=== PATIENT | male | born 1950 ===

== ENCOUNTER 2021-11-21 11:07 | Emergency (ER) | payer MEDICARE ==
--- NOTE | 2021-11-21 16:45 | XRay Report ---
CHEST 2 VIEWS INDICATION / CLINICAL INFORMATION: Weakness. Recent diagnosis of Covid-11/07/2021 COMPARISON: None available. FINDINGS: SUPPORT DEVICES: None. HEART / MEDIASTINUM: No significant abnormality. LUNGS / PLEURA: There is patchy parenchymal opacity noted in the left lung base likely representing p neumonitis. No pneumothorax. ADDITIONAL FINDINGS: No significant additional findings. IMPRESSION: 1. There is some patchy airspace opacity on the left which likely represents pneumonitis. Signer Name: Shemar Kern MD Signed: 11/21/2021 4:40 PM Workstation Name: [id number]
[2021-11-21 17:03] LABS: Basophils % (Auto) 0.5 % (0.0-1.8); Eosinophils # (Auto) 0.1 K/mm3 (0.0-0.4); Eosinophils % (Auto) 0.8 % (0.0-4.3); Hematocrit 37.8 % (35.5-45.6); Hemoglobin 13.2 gm/dl (11.8-15.2); Lymphocytes % (Auto) 13.8 % (13.4-35.0); Mean Corpuscular HGB Conc 35 % (32-34); Mean Corpuscular Volume 91 fl (84-94); Monocytes # (Auto) 0.8 K/mm3 (0.0-0.8); Monocytes % (Auto) 10.2 % (0.0-7.3); Platelet Count 241 K/mm3 (140-440); Red Blood Count 4.15 M/mm3 (3.65-5.03); Red Cell Distribution Width 12.8 % (13.2-15.2)
[2021-11-21 17:42] LABS: Albumin 3.1 g/dL (3.9-5); Calcium 8.4 mg/dL (8.4-10.2)
[2021-11-21] MEDS ORDERED: SODIUM CHLORIDE 0.9% 1000 ML 1,000 ML IV ONE (19:30)
[2021-11-21] MEDS ORDERED: dexAMETHasone 4 MG/ML VIAL IV ONE (19:47)
--- NOTE | 2021-11-21 20:13 | Emergency Department Report ---
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 States that he received fluids in the hospital which significantly improved his skin condition thinks he is now getting dehydrated so presents emerged department seeking further evaluation treatment options. Reports no night sweats, hemoptysis hematemesis hematochezia no diarrhea, no constipation no abdominal pain. -: Gradual Location: chest Radiation: non-radiation Consistency: constant Improves with: none Worsens with: none Associated Symptoms: cough, malaise. denies: loss of appetite, nausea/vomiting, syncope, weakness - Related Data Home Medications Medication Instructions Recorded Confirmed Last Taken Colchicine [Colcrys] 0.6 mg PO BID 11/21/21 11/21/21 Unknown Olmesartan/Amlodipin/Hcthiazid 1 each PO 11/21/21 Unknown [Tribenzor 40-10-12.5 mg Tablet] Pantoprazole [Protonix] 40 mg PO BID 11/21/21 11/21/21 Unknown allopurinoL [Zyloprim] 100 mg PO 11/21/21 Unknown hydrALAZINE [Apresoline] 25 mg PO 11/21/21 Unknown predniSONE 10 mg PO QDAY 11/21/21 11/21/21 Unknown Previous Rx's Medication Instructions Recorded Last Taken Type Albuterol Mdi (or & Nicu Only) 2 puff IH QID PRN #1 inhalation 11/21/21 Unknown Rx [ProAir HFA Inhaler] Azithromycin [Zithromax] 500 mg PO QDAY #5 tablet 11/21/21 Unknown Rx Benzonatate [Tessalon Perles] 100 mg PO Q8HR #20 capsule 11/21/21 Unknown Rx Allergies Allergy/AdvReac Type Severity Reaction Status Date / Time aspirin AdvReac Unknown Verified 11/21/21 11:13 NSAIDS (Non-Steroidal AdvReac Unknown Verified 11/21/21 11:13 Anti-Inflamma Penicillins AdvReac Unknown Verified 11/21/21 11:13 sulfamethoxazole AdvReac Unknown Verified 11/21/21 11:13 [From Bactrim] trimethoprim [From Bactrim] AdvReac Unknown Verified 11/21/21 11:13 ED Review of Systems ROS: Stated complaint: GENERAL WEAKNESS Other details as noted in HPI Comment: All other systems reviewed and negative ED Past Medical Hx - Medications Home Medications: Home Medications Medication Instructions Recorded Confirmed Last Taken Type Albuterol Mdi (or & Nicu Only) 2 puff IH QID PRN #1 inhalation 11/21/21 Unknown Rx [ProAir HFA Inhaler] Azithromycin [Zithromax] 500 mg PO QDAY #5 tablet 11/21/21 Unknown Rx Benzonatate [Tessalon Perles] 100 mg PO Q8HR #20 capsule 11/21/21 Unknown Rx Colchicine [Colcrys] 0.6 mg PO BID 11/21/21 11/21/21 Unknown History Olmesartan/Amlodipin/Hcthiazid 1 each PO 11/21/21 Unknown History [Tribenzor 40-10-12.5 mg Tablet] Pantoprazole [Protonix] 40 mg PO BID 11/21/21 11/21/21 Unknown History allopurinoL [Zyloprim] 100 mg PO 11/21/21 Unknown History hydrALAZINE [Apresoline] 25 mg PO 11/21/21 Unknown History predniSONE 10 mg PO QDAY 11/21/21 11/21/21 Unknown History ED Physical Exam - General Limitations: No Limitations General appearance: alert, in no apparent distress - Head Head exam: Present: atraumatic, normocephalic - Eye Eye exam: Present: normal appearance - ENT ENT exam: Present: mucous membranes moist - Neck Neck exam: Present: normal inspection - Respiratory Respiratory exam: Present: normal lung sounds bilaterally, rhonchi, other (Patient able to ambulate around the entire emergency department with maintaining good saturations greater than or equal to 96% on room air heart rate maximum increased up to 98). Absent: respiratory distress, chest wall tenderness, accessory muscle use, decreased breath sounds - Cardiovascular Cardiovascular Exam: Present: regular rate, normal rhythm. Absent: systolic murmur, diastolic murmur, rubs, gallop - GI/Abdominal GI/Abdominal exam: Present: soft, normal bowel sounds - Rectal Rectal exam: Present: deferred - Extremities Exam Extremities exam: Present: normal inspection - Back Exam Back exam: Present: normal inspection. Absent: CVA tenderness (R), CVA tenderness (L) - Neurological Exam Neurological exam: Present: alert, oriented X3, CN II-XII intact - Psychiatric Psychiatric exam: Present: normal affect, normal mood - Skin Skin exam: Present: warm, dry, intact, normal color. Absent: rash ED Course Vital Signs 11/21/21 11:10 Temperature 99.6 F Pulse Rate 110 H Respiratory 20 Rate Blood Pressure 100/63 [Left] O2 Sat by Pulse 98 Oximetry ED Medical Decision Making - Lab Data Result diagrams: 11/21/21 16:36 11/21/21 16:36 Critical care attestation.: If time is entered above; I have spent that time in minutes in the direct care of this critically ill patient, excluding procedure time. ED Disposition Clinical Impression: Left lower lobe pneumonia Disposition: 01 HOME / SELF CARE / HOMELESS Is pt being admited?: No Does the pt Need Aspirin: No Condition: Stable Instructions: Bacterial Pneumonia (ED), Community-Acquired Pneumonia, Adult, COVID-19 Prescriptions: Albuterol Mdi (or & Nicu Only) [ProAir HFA Inhaler] 2 puff IH QID PRN #1 inhalation PRN Reason: Shortness Of Breath Benzonatate [Tessalon Perles] 100 mg PO Q8HR #20 capsule Azithromycin [Zithromax] 500 mg PO QDAY #5 tablet
[2021-11-21 22:57] VITALS: BP 116/71
== END 2021-11-21 22:57 | disposition home or self-care (01) ==
LOC: ED 11:07
DX: J18.1 Lobar pneumonia, unspecified organism (principal); Z88.6 Allergy status to analgesic agent; Z88.2 Allergy status to sulfonamides; Z88.8 Allergy status to other drugs, medicaments and biological substances
CPT/HCPCS: 36415; 71046; 80053; 85025; 96361; 96374; 99284; J1100; J7030